=== PATIENT | female | born 2000 | race Hispanic/Latino ===

== ENCOUNTER 2018-08-11 15:41 | Emergency (ER) | payer BC ==
[2018-08-11 15:57] VITALS: O2SAT 100
[2018-08-11 17:06] LABS: VENOUS BLOOD GAS BASE EXCESS -1.8 mmol/L (0.0-2.0); VENOUS BLOOD GAS PCO2 39 mmHg (40-60); VENOUS BLOOD GAS PO2 27 mm/Hg (30-55); VENOUS BLOOD PH 7.38 (7.32-7.43)
[2018-08-11 17:07] LABS: BASO # 0.1 K/uL (0.0-0.2); BASO % 0.5 % (0.0-2.0); EOS # 0.1 K/uL (0.0-0.7); EOS % 0.4 % (0.0-4.0); HEMOGLOBIN 14.4 g/dL (12.0-16.0); LYMPH # 2.2 K/uL (1.0-4.3); LYMPH % 15.9 % (20.0-40.0); MEAN CELL VOLUME 88.2 fl (81.0-99.0); MEAN CORPUSCULAR HEMOGLOBIN 29.5 pg (27.0-31.0); MEAN CORPUSCULAR HGB CONC 33.4 g/dL (33.0-37.0); MEAN PLATELET VOLUME 8.9 fl (7.2-11.7); MONO # 0.4 K/uL (0.0-0.8); MONO % 2.9 % (0.0-10.0); NEUT # 10.9 K/uL (1.8-7.0); NEUT % 80.3 % (50.0-75.0); RBC 4.9 Mil/uL (3.80-5.20); RED CELL DISTRIBUTION WIDTH 12.9 % (11.5-14.5); SQUAMOUS EPITHIAL 1 /hpf (0-5); URINE BACTERIA RARE (<OCC); URINE BILIRUBIN NEGATIVE (NEGATIVE); URINE BLOOD NEGATIVE (NEGATIVE); URINE CLARITY SLIGHTY-CLOUDY (Clear); URINE COLOR YELLOW (YELLOW); URINE GLUCOSE (UA) NEG (Normal); URINE LEUKOCYTE ESTERASE NEG Leu/uL (Negative); URINE PROTEIN 30 mg/dL (NEGATIVE); URINE UROBILINOGEN 0.2-1.0 mg/dL (0.2-1.0); WHITE BLOOD COUNT 13.6 K/uL (4.8-10.8)
--- NOTE | 2018-08-11 17:13 | ED PDOC ---
HPI: Chest Pain Time Seen by Provider: 08/11/18 16:27 Chief Complaint (Nursing): Palpitations Chief Complaint (Provider): Palpitations History Per: Patient, Family History/Exam Limitations: no limitations Onset/Duration Of Symptoms: Hrs Current Symptoms Are (Timing): Still Present Quality: Tightness Additional Complaint(s): Candy Lassiter is a 18 year old female with no past medical history who is presenting to the ED for evaluation of an episode of palpitations and shortness of breath, onset while playing volleyball earlier today. Patient states that she was serving when she felt like she couldnt catch her breath and that feeling went away in one minute, but the palpitations took 10-20 minutes to go away. She reports that she presented to the [facility] clinic where they did and EKG which showed R wave abnormalities in V1 and V2, prompting doctor to send her here. Patient is asymptomatic now and has never had these symptoms before. Of note, mother states that she had a heart attack at the age of 39 and the cause was undetermined from all workups. Patient is on control and her last period was 3 weeks ago. PMD: [facility] Past Medical History Reviewed: Historical Data, Nursing Documentation, Vital Signs Vital Signs: Last Vital Signs Temp 98.5 F 08/11/18 15:53 Pulse 94 H 08/11/18 15:53 Resp 18 08/11/18 15:53 BP Pulse Ox 100 08/11/18 15:53 - Medical History PMH: No Chronic Diseases - Surgical History Surgical History: No Surg Hx - Family History Family History: States: Other Other Family History: mother had a heart attack at 39, undetermined cause - Social History Current smoker - smoking cessation education provided: No Alcohol: None Drugs: Denies - Allergies Allergies/Adverse Reactions: Allergies Allergy/AdvReac Type Severity Reaction Status Date / Time No Known Allergies Allergy Verified 08/11/18 15:52 JULIA Risk Score for UA/NSTEMI - JULIA Risk Score Age > 64: NO 3 or more CAD Risk Factors: NO Known CAD (Stenosis greater than 50%): NO Aspirin use in past 7 days: NO Severe Angina: NO EKG ST changes greater than 0.5mm: NO Positive Cardiac Marker: NO JULIA Score: 0 Risk %: 5% Curb-65 Severity Score - CURB-65 Severity Score Confusion: No Bun >19mg/dl (>7mmol/L): No Respiratory Rate greater than/equal to 30: No Systolic BP <90 or Diastolic BP less than/equal 60mmHg: No Age >64: No Curb-65 Score: 0 Percentage 30-day mortality: 0.6% Wells Criteria for PE - Wells Criteria for Pulmonary Embolism Clinical Signs and Symptoms of DVT: No P.E is #1 Diagnosis, or Equally Likely: No Heart Rate >100: No Immobilization at least 3 days;Surgery previous 4 weeks: No Previous, objectively diagnosed PE or DVT: No Hemoptysis: No Malignancy w/treatment within 6 months, or palliative: No Total Score: 0 Review of Systems ROS Statement: Except As Marked, All Systems Reviewed And Found Negative Cardiovascular: Positive for: Chest Pain, Palpitations Respiratory: Positive for: Shortness of Breath Physical Exam - Reviewed Nursing Documentation Reviewed: Yes Vital Signs Reviewed: Yes - Physical Exam Appears: Positive for: Well, Non-toxic, No Acute Distress Head Exam: Positive for: ATRAUMATIC, NORMAL INSPECTION, NORMOCEPHALIC Skin: Positive for: Normal Color, Warm. Negative for: Cyanosis Eye Exam: Positive for: EOMI, Normal appearance, PERRL ENT: Positive for: Normal ENT Inspection Neck: Positive for: Normal, Painless ROM Cardiovascular/Chest: Positive for: Regular Rate, Rhythm. Negative for: Murmur Respiratory: Positive for: Normal Breath Sounds. Negative for: Respiratory Distress Gastrointestinal/Abdominal: Positive for: Normal Exam, Soft. Negative for: Tenderness Back: Positive for: Normal Inspection Extremity: Positive for: Normal ROM. Negative for: Pedal Edema, Calf Tenderness (no pain on calf squeeze), Deformity, Swelling, Other (clubbing) Neurologic/Psych: Positive for: Alert, Oriented. Negative for: Motor/Sensory Deficits - Laboratory Results Result Diagrams: 08/11/18 16:45 08/11/18 16:45 - ECG O2 Sat by Pulse Oximetry: 100 (RA) Pulse Ox Interpretation: Normal Medical Decision Making Medical Decision Making: Time: 16:45 A/P: workup for cardiac pathology --Labs EKG, and CXR --reassess patient --- Scribe Attestation: Documented by, Arelis Vargas acting as a scribe for Denise Serrano MD. Provider Scribe Attestation: All medical record entries made by the Scribe were at my direction and persona lly dictated by me. I have reviewed the chart and agree that the record accurately reflects my personal performance of the history, physical exam, medical decision making, and the department course for this patient. I have also personally directed, reviewed, and agree with the discharge instructions and disposition. 1900 Pt with normal labs and EKG is unremarkable. Pt with JULIA score of zero, Curb score of zero, and Wells score of zero. Pt has been asymptomatic since being in the emergency department. Repeat EKG unremarkable. Pt to follow up with [employer]. Advised to not perform sports until cleared by medicare sales representative. Given note for school. Return parameters discussed with the patient and her parents. Everyone in agreement with discharge home and outpatient cardiology follow up. Disposition - Clinical Impression Clinical Impression: Shortness of breath, Palpitations, Rapid palpitations - Disposition Referrals: Dev Carter MD [Staff Provider] - Disposition: Routine/Home Disposition Time: 19:08 Condition: IMPROVED Additional Instructions: Follow up with the medicare sales representative as discussed. Return to the emergency department if symptoms return. No sports until cleared by a medicare sales representative. Instructions: Shortness of Breath (Dyspnea) (DC) Forms: [employer] (Yakut), [facility] ED School/Work Excuse Print Language: TOGOLESE
[2018-08-11 17:22] LABS: BLOOD UREA NITROGEN 17 mg/dl (7-17); CALCIUM 9.9 mg/dL (8.4-10.2); GFR NON-AFRICAN AMERICAN > 60
[2018-08-11 20:17] VITALS: BP 118/72; PULSE 72; RESP 20; TEMP 98.1
--- NOTE | 2018-08-11 22:17 | RAD ---
Date of service: 08/11/2018 HISTORY: possible admission COMPARISON: No prior. FINDINGS: LUNGS: No active pulmonary disease. PLEURA: No significant pleural effusion identified, no pneumothorax apparent. CARDIOVASCULAR: Normal. OSSEOUS STRUCTURES: No significant abnormalities. VISUALIZED UPPER ABDOMEN: Normal. OTHER FINDINGS: None. IMPRESSION: No active disease.
--- NOTE | 2018-08-12 17:10 | CARD ---
APPROVED REPORT Date of service: 08/11/2018 EKG Measurement Heart [id number] [place] [id number] <Conclusion> Normal sinus rhythm Normal Electrocardiogram
--- NOTE | 2018-08-12 17:14 | CARD ---
APPROVED REPORT Date of service: 08/11/2018 EKG Measurement Heart [id number] [place] [id number] <Conclusion> Sinus rhythm with marked sinus arrhythmia Normal Electrocardiogram
== END 2018-08-11 19:20 | disposition home or self-care (01) ==
LOC: H.ER 15:41
DX: R06.02 Shortness of breath (principal); R00.2 Palpitations